=== PATIENT | female | born 1940 | race Hispanic/Latino ===

== ENCOUNTER 2021-03-11 15:00 | Emergency (ER) | payer MEDICARE ==
[2021-03-11] MEDS ORDERED: HYDROCODONE/ACETAMINOPHEN 5/325 MG TAB ONE (16:48)
== END 2021-03-11 19:21 | disposition home or self-care (01) ==
LOC: EDH 15:00
DX: S92.901A Unspecified fracture of right foot, initial encounter for closed fracture (principal); S90.01XA Contusion of right ankle, initial encounter; E11.9 Type 2 diabetes mellitus without complications; I10 Essential (primary) hypertension; E78.00 Pure hypercholesterolemia, unspecified; Z72.0 Tobacco use; Z86.73 Personal history of transient ischemic attack (TIA), and cerebral infarction without residual deficits; W18.39XA Other fall on same level, initial encounter; Y93.89 Activity, other specified; Y92.89 Other specified places as the place of occurrence of the external cause; Y99.8 Other external cause status
CPT/HCPCS: 73590; 73610; 73620; 93971

== ENCOUNTER 2021-07-09 21:49 | Emergency (ER) | payer MEDICARE ==
[~2021-07-09] VITALS: Ht 152.4 cm; Wt 61.2 kg
[2021-07-10 00:55] LABS: APPEARANCE,URINE Clear (CLEAR); BILIRUBIN,URINE Negative (NEGATIVE); COLOR,URINE Yellow (YELLOW); GLUCOSE, URINE (UA) Negative (NEGATIVE); KETONES,URINE Trace mg/dL (NEGATIVE); LEUKOCYTE ESTERASE ,URINE Negative (NEGATIVE); NITRATE,URINE Negative (NEGATIVE); OCCULT BLOOD,URINE Negative (NEGATIVE); PROTEIN,URINE POS 2+ mg/dL (NEGATIVE)
[2021-07-10 01:06] LABS: BASOPHILS % (AUTO) 0.4 % (0.0-5.0); EOSINOPHILS % (AUTO) 0.4 % (0.0-8.0); HEMATOCRIT 38.2 % (36-48); LYMPHOCYTES % (AUTO) 37.5 % (21.0-51.0); MEAN CORPUSCULAR HEMOGLOBIN 30.4 pg (27.0-33.0); MEAN CORPUSCULAR VOLUME 92.3 fL (79-99); MONOCYTES % (AUTO) 7.8 % (3.0-13.0); NEUTROPHILS % (AUTO) 53.8 % (40.0-77.0); PLATELET COUNT (AUTO) 303 K/uL (130-400); RED BLOOD CELL COUNT(AUTO) 4.14 MIL/uL (4.00-5.50); RED CELL DISTRIBUTION WIDTH 13.8 % (11.0-15.5); WHITE BLOOD COUNT (AUTO) 7.5 K/uL (4.8-10.8)
[2021-07-10 01:08] VITALS: BP 158/67
[2021-07-10 01:08] LABS: BACTERIA,URINE Rare /HPF (None Seen); MUCUS,URINE Few LPF (None Seen); RBC,URINE 0-1 /HPF (0-1); SQUAMOUS EPITHELIAL CELL,UR 0-2 /HPF (0-2); WBC,URINE 0-1 /HPF (0-1)
[2021-07-10 01:19] LABS: CREATININE 1.2 mg/dL (0.5-1.5)
[2021-07-10 01:24] LABS: ALBUMIN 4.1 g/dL (3.5-5.0); BILIRUBIN,TOTAL 0.7 mg/dL (0.2-1.0); TOTAL PROTEIN, SERUM 8.5 g/dL (6.0-8.3)
[2021-07-10 02:17] VITALS: BP 170/76
[2021-07-10] MEDS ORDERED: 0.9%NACL 1000ML 1,000 ML IV ONE (02:30)
[2021-07-10] MEDS ORDERED: FAMOTIDINE 20MG VIAL IV ONE ×2 (02:30→02:33)
[2021-07-10] MEDS ORDERED: PROCHLORPERAZINE 10MG/2ML INJ IV ONE (02:30)
[2021-07-10] MEDS ORDERED: ONDANSETRON 4MG INJ IVP ONE (02:30)
[2021-07-10] MEDS ORDERED: ONDANSETRON 4MG INJ ONE (02:33)
[2021-07-10] MEDS ORDERED: PROCHLORPERAZINE 10MG/2ML INJ ONE (02:33)
[2021-07-10] MEDS ORDERED: MORPHINE 2 MG SYG ONE (03:05)
[2021-07-10] MEDS ORDERED: MORPHINE 2 MG SYG IVP ONE (03:30)
[2021-07-10] MEDS ORDERED: FAMO-136 PO (04:16)
[2021-07-10] MEDS ORDERED: PROC5TAB54 PO (04:16)
[2021-07-10 04:18] VITALS: BP 158/68
== END 2021-07-10 04:43 | disposition home or self-care (01) ==
LOC: EDH 21:49
DX: K52.9 Noninfective gastroenteritis and colitis, unspecified (principal); E86.0 Dehydration; M19.90 Unspecified osteoarthritis, unspecified site; F32.9 Major depressive disorder, single episode, unspecified
CPT/HCPCS: 36415; 71045; 74176; 80053; 81001; 83605; 83690; 84484; 85025; 87040 ×2; 93005; 96374; 96375; 99285; J0780; J2405; J3490

== ENCOUNTER 2021-08-02 16:50 | Emergency (ER) | payer MEDICARE ==
[~2021-08-02] VITALS: Ht 152.4 cm; Wt 63.5 kg
[~2021-08-02 16:50] MED LIST: FAMO-136 PO; PROC5TAB54 PO
[2021-08-02 16:51] VITALS: BP 105/59
[2021-08-02 17:19] LABS: BASOPHILS % (AUTO) 0.8 % (0.0-5.0); EOSINOPHILS % (AUTO) 0.9 % (0.0-8.0); LYMPHOCYTES % (AUTO) 24.2 % (21.0-51.0); MEAN CORPUSCULAR HEMOGLOBIN 30.6 pg (27.0-33.0); MEAN CORPUSCULAR HGB CONC 32.4 g/dL (32.0-36.0); MEAN CORPUSCULAR VOLUME 94.7 fL (79-99); MONOCYTES % (AUTO) 5.7 % (3.0-13.0); PLATELET COUNT (AUTO) 362 K/uL (130-400); RED BLOOD CELL COUNT(AUTO) 3.59 MIL/uL (4.00-5.50); RED CELL DISTRIBUTION WIDTH 14.2 % (11.0-15.5); WHITE BLOOD COUNT (AUTO) 7.9 K/uL (4.8-10.8)
[2021-08-02 17:30] LABS: CARBON DIOXIDE 22 mmol/L (21-32); CHLORIDE 101 mmol/L (101-111); CREATININE 1.6 mg/dL (0.5-1.5); GLOMERULAR FILTR. RATE CALC 33 mL/min (>60); GLUCOSE,RANDOM 308 mg/dL (70-105); POTASSIUM 4.9 mmol/L (3.5-5.1); SODIUM SERUM 136 mmol/L (136-145); UREA NITROGEN, BLOOD 25 mg/dL (7-18)
[2021-08-02 17:35] LABS: ALANINE AMINOTRANSFERASE 19 U/L (12-78); ALBUMIN 3.5 g/dL (3.5-5.0); ASPARTATE AMINOTRANSFERASE 15 U/L (10-37); B-TYPE NATRIURETIC PEPTIDE 33 pg/mL (0-100); BILIRUBIN,TOTAL 0.5 mg/dL (0.2-1.0)
[2021-08-02 17:53] LABS: CRP QUANTITATIVE < 2.00 mg/L (0.00-9.0)
[2021-08-02 18:21] LABS: APPEARANCE,URINE Clear (CLEAR); BILIRUBIN,URINE Negative (NEGATIVE); COLOR,URINE Yellow (YELLOW); GLUCOSE, URINE (UA) Negative (NEGATIVE); KETONES,URINE Negative (NEGATIVE); LEUKOCYTE ESTERASE ,URINE Negative (NEGATIVE); NITRATE,URINE Negative (NEGATIVE); OCCULT BLOOD,URINE Negative (NEGATIVE); PH,URINE 5.5 (5.0-8.0); PROTEIN,URINE Trace mg/dL (NEGATIVE)
[2021-08-02] MEDS ORDERED: INSULIN HUMULIN R 100 UNIT/ML 3ML SQ ONE (18:30)
[2021-08-02] MEDS ORDERED: 0.9%NACL 1000ML 1,000 ML IV SCH (18:30)
[2021-08-02 18:32] LABS: BACTERIA,URINE Rare /HPF (None Seen); RBC,URINE 0-1 /HPF (0-1); SQUAMOUS EPITHELIAL CELL,UR Rare /HPF (0-2); WBC,URINE 0-1 /HPF (0-1)
[2021-08-02 18:33] LABS: MUCUS,URINE Rare LPF (None Seen)
[2021-08-02] MEDS ORDERED: DICY20TA2 PO (18:53)
[2021-08-02 19:39] VITALS: BP 129/63
== END 2021-08-02 19:44 | disposition home or self-care (01) ==
LOC: EDH 16:50
DX: R53.1 Weakness (principal); E11.65 Type 2 diabetes mellitus with hyperglycemia; R10.9 Unspecified abdominal pain; J45.909 Unspecified asthma, uncomplicated; I10 Essential (primary) hypertension; F32.9 Major depressive disorder, single episode, unspecified; Z98.890 Other specified postprocedural states
CPT/HCPCS: 36415; 71045; 74176; 80053; 81001; 83880; 84484; 85025; 86140; 93005; 96360; 99285; J1815; J7030

== ENCOUNTER 2022-01-31 11:39 | Emergency (ER) | payer OTHER, MEDICARE ==
[~2022-01-31 11:39] MED LIST changes: +DICY20TA2 PO
[2022-01-31 11:55] LABS: BASOPHILS % (AUTO) 0.4 % (0.0-5.0); EOSINOPHILS % (AUTO) 0.5 % (0.0-8.0); HEMATOCRIT 35.5 % (36-48); LYMPHOCYTES % (AUTO) 32.3 % (21.0-51.0); MEAN CORPUSCULAR HEMOGLOBIN 30.5 pg (27.0-33.0); MEAN CORPUSCULAR HGB CONC 34.1 g/dL (32.0-36.0); MEAN CORPUSCULAR VOLUME 89.4 fL (79-99); MONOCYTES % (AUTO) 6.4 % (3.0-13.0); NEUTROPHILS % (AUTO) 60.2 % (40.0-77.0); PLATELET COUNT (AUTO) 299 K/uL (130-400); RED BLOOD CELL COUNT(AUTO) 3.97 MIL/uL (4.00-5.50); WHITE BLOOD COUNT (AUTO) 8.4 K/uL (4.8-10.8)
[2022-01-31] MEDS ORDERED: ACETAMINOPHEN 500 MG TABLET PO SCH (12:00)
[2022-01-31 12:09] LABS: ALBUMIN 3.7 g/dL (3.5-5.0); BILIRUBIN,TOTAL 0.9 mg/dL (0.2-1.0); CREATININE 1.3 mg/dL (0.5-1.5); TOTAL PROTEIN, SERUM 7.6 g/dL (6.0-8.3)
[2022-01-31 13:39] VITALS: BP 168/76
[2022-01-31] MEDS ORDERED: LACTATED RINGERS 1000ML 1,000 ML IV ONE (13:43)
[2022-01-31] MEDS ORDERED: LACTATED RINGERS 1000ML IV SCH (14:00)
[2022-01-31 14:53] LABS: APPEARANCE,URINE Clear (CLEAR); BILIRUBIN,URINE Negative (NEGATIVE); COLOR,URINE Yellow (YELLOW); GLUCOSE, URINE (UA) >=1000 mg/dL (NEGATIVE); KETONES,URINE 15 mg/dL (NEGATIVE); LEUKOCYTE ESTERASE ,URINE Small (NEGATIVE); NITRATE,URINE Negative (NEGATIVE); OCCULT BLOOD,URINE Negative (NEGATIVE); PH,URINE 5.5 (5.0-8.0); PROTEIN,URINE POS 1+ mg/dL (NEGATIVE)
[2022-01-31 15:13] LABS: BACTERIA,URINE Rare /HPF (None Seen); RBC,URINE 0-1 /HPF (0-1)
[2022-01-31 15:14] LABS: SQUAMOUS EPITHELIAL CELL,UR Few /HPF (0-2)
[2022-01-31] MEDS ORDERED: CEPH500B PO (15:22)
== END 2022-01-31 15:38 | disposition home or self-care (01) ==
LOC: EDH 11:39
DX: N39.0 Urinary tract infection, site not specified (principal); E11.9 Type 2 diabetes mellitus without complications; E86.0 Dehydration; I10 Essential (primary) hypertension; J45.909 Unspecified asthma, uncomplicated; F32.A Depression, unspecified
CPT/HCPCS: 36415; 70450; 80053; 81001; 85025; 96360; 96361; 99284; J7120

== ENCOUNTER 2022-02-02 14:18 | Emergency (ER) | payer OTHER, MEDICARE ==
[~2022-02-02] VITALS: Ht 152.4 cm; Wt 69.9 kg
[~2022-02-02 14:18] MED LIST changes: +CEPH500B PO
[2022-02-02] MEDS ORDERED: ONDANSETRON 4MG INJ IVP ONE (14:30)
[2022-02-02] MEDS ORDERED: 0.9%NACL 1000ML 1,000 ML IV ONE (14:30)
[2022-02-02] MEDS ORDERED: PANTOPRAZOLE 40 MG/VIAL IVP ONE (14:30)
[2022-02-02 14:39] LABS: BASOPHILS % (AUTO) 0.4 % (0.0-5.0); EOSINOPHILS % (AUTO) 0.5 % (0.0-8.0); HEMATOCRIT 37.8 % (36-48); LYMPHOCYTES % (AUTO) 5.1 % (21.0-51.0); MEAN CORPUSCULAR HEMOGLOBIN 31.4 pg (27.0-33.0); MEAN CORPUSCULAR HGB CONC 34.1 g/dL (32.0-36.0); MONOCYTES % (AUTO) 3.6 % (3.0-13.0); NEUTROPHILS % (AUTO) 90.2 % (40.0-77.0); PLATELET COUNT (AUTO) 255 K/uL (130-400); RED BLOOD CELL COUNT(AUTO) 4.11 MIL/uL (4.00-5.50); WHITE BLOOD COUNT (AUTO) 8.5 K/uL (4.8-10.8)
[2022-02-02 14:55] LABS: ALBUMIN 3.6 g/dL (3.5-5.0); BILIRUBIN,TOTAL 1.1 mg/dL (0.2-1.0); CREATININE 1.2 mg/dL (0.5-1.5); POTASSIUM 3.8 mmol/L (3.5-5.1); TOTAL PROTEIN, SERUM 7.6 g/dL (6.0-8.3)
[2022-02-02] MEDS ORDERED: INSULIN HUMULIN R 100 UNIT/ML 3ML IV ONE ×2 (15:00→16:30)
[2022-02-02] MEDS ORDERED: DICYCLOMINE HCL 10 MG/5 ML ML PO ONE (15:30)
[2022-02-02] MEDS ORDERED: LIDOCAINE HCL 2% VISCOUS 15 ML UDCUP PO ONE (15:30)
[2022-02-02] MEDS ORDERED: MAG/ALUM/SIMETH 30 ML UDCUP PO ONE (15:30)
[2022-02-02] MEDS ORDERED: MORPHINE 2 MG SYG ONE (16:24)
[2022-02-02] MEDS ORDERED: INSULIN HUMULIN R 100 UNIT/ML 3ML ONE (16:24)
[2022-02-02] MEDS ORDERED: MORPHINE 2 MG SYG IVP ONE (16:30)
[2022-02-02 17:05] LABS: APPEARANCE,URINE Clear (CLEAR); BILIRUBIN,URINE Negative (NEGATIVE); COLOR,URINE Yellow (YELLOW); GLUCOSE, URINE (UA) >=1000 mg/dL (NEGATIVE); KETONES,URINE 15 mg/dL (NEGATIVE); LEUKOCYTE ESTERASE ,URINE Negative (NEGATIVE); NITRATE,URINE Negative (NEGATIVE); OCCULT BLOOD,URINE Negative (NEGATIVE); PROTEIN,URINE POS 1+ mg/dL (NEGATIVE); UROBILINOGEN,URINE 0.2 mg/dL (0.2-1.0)
[2022-02-02] MEDS ORDERED: IOHEXOL-350 50ML VIAL IV ONE (17:13)
[2022-02-02 17:18] LABS: RBC,URINE 0-1 /HPF (0-1); WBC,URINE 0-1 /HPF (0-1)
[2022-02-02 17:19] LABS: BACTERIA,URINE Few /HPF (None Seen); SQUAMOUS EPITHELIAL CELL,UR Few /HPF (0-2)
[2022-02-02] MEDS ORDERED: KETOROLAC 30MG VIAL (30MG/ML) IV ONE (18:00)
[2022-02-02] MEDS ORDERED: KETOROLAC 30MG VIAL (30MG/ML) ONE (18:02)
[2022-02-02] MEDS ORDERED: DICY10 PO (18:08)
[2022-02-02 18:48] VITALS: BP 149/75
== END 2022-02-02 18:51 | disposition home or self-care (01) ==
LOC: EDH 14:18
DX: K52.9 Noninfective gastroenteritis and colitis, unspecified (principal); E11.9 Type 2 diabetes mellitus without complications; I10 Essential (primary) hypertension
CPT/HCPCS: 36415; 74177; 80053; 81001; 82948 ×2; 83690; 84484; 85025; 93005; 96361; 96374; 96375; 96376; 99285; C9113; J1815 ×2; J1885; J2405; Q9967

== ENCOUNTER 2022-05-02 11:14 | Emergency (ER) | payer OTHER, MEDICARE ==
[~2022-05-02] VITALS: Ht 154.9 cm; Wt 68.0 kg
[~2022-05-02 11:14] MED LIST changes: +DICY10 PO
[2022-05-02 11:51] LABS: BASOPHILS % (AUTO) 0.6 % (0.0-5.0); HEMATOCRIT 33.2 % (36-48); LYMPHOCYTES % (AUTO) 29.2 % (21.0-51.0); MEAN CORPUSCULAR HEMOGLOBIN 30.6 pg (27.0-33.0); MEAN CORPUSCULAR HGB CONC 32.8 g/dL (32.0-36.0); MEAN CORPUSCULAR VOLUME 93.3 fL (79-99); NEUTROPHILS % (AUTO) 61.9 % (40.0-77.0); PLATELET COUNT (AUTO) 281 K/uL (130-400); RED BLOOD CELL COUNT(AUTO) 3.56 MIL/uL (4.00-5.50); RED CELL DISTRIBUTION WIDTH 13.9 % (11.0-15.5); WHITE BLOOD COUNT (AUTO) 6.4 K/uL (4.8-10.8)
[2022-05-02 12:01] LABS: CREATININE 1.3 mg/dL (0.5-1.5); POTASSIUM 4.2 mmol/L (3.5-5.1)
[2022-05-02 12:06] LABS: ALBUMIN 3.5 g/dL (3.5-5.0); BILIRUBIN,TOTAL 0.8 mg/dL (0.2-1.0); TOTAL PROTEIN, SERUM 7.2 g/dL (6.0-8.3)
[2022-05-02 12:36] LABS: APPEARANCE,URINE Clear (CLEAR); BILIRUBIN,URINE Negative (NEGATIVE); COLOR,URINE Yellow (YELLOW); GLUCOSE, URINE (UA) >=1000 mg/dL (NEGATIVE); KETONES,URINE Negative (NEGATIVE); LEUKOCYTE ESTERASE ,URINE Trace (NEGATIVE); NITRATE,URINE Negative (NEGATIVE); OCCULT BLOOD,URINE Negative (NEGATIVE); PH,URINE 5.5 (5.0-8.0); PROTEIN,URINE Trace mg/dL (NEGATIVE)
[2022-05-02 12:53] LABS: BACTERIA,URINE Rare /HPF (None Seen); RBC,URINE 0-1 /HPF (0-1); SQUAMOUS EPITHELIAL CELL,UR Rare /HPF (0-2)
[2022-05-02] MEDS ORDERED: ACETAMINOPHEN 325 MG TAB ONE (13:58)
[2022-05-02] MEDS ORDERED: ONDANSETRON 4MG INJ ONE (13:59)
[2022-05-02] MEDS ORDERED: CEFTRIAXONE 1G VIAL IVP ONE (15:00)
[2022-05-02] MEDS ORDERED: CLOT45CR23 VG (16:09)
[2022-05-02] MEDS ORDERED: SULF1TAB42 PO (16:09)
[2022-05-02] MEDS ORDERED: ONDA4TAB10 PO (16:09)
[2022-05-02 16:53] VITALS: BP 108/56
== END 2022-05-02 17:04 | disposition home or self-care (01) ==
LOC: EDH 11:14
DX: N39.0 Urinary tract infection, site not specified (principal); E11.9 Type 2 diabetes mellitus without complications; R10.84 Generalized abdominal pain; I10 Essential (primary) hypertension; Z90.89 Acquired absence of other organs; Z90.49 Acquired absence of other specified parts of digestive tract; Z79.899 Other long term (current) drug therapy; W01.0XXA Fall on same level from slipping, tripping and stumbling without subsequent striking against object, initial encounter; Y93.89 Activity, other specified; Y92.89 Other specified places as the place of occurrence of the external cause; Y99.8 Other external cause status
CPT/HCPCS: 36415; 70450; 72125; 74176; 80053; 81001; 85025; 87088; 96374; 96375; 99284; J0696; J2405

== ENCOUNTER 2022-08-14 13:02 | Emergency (ER) | payer OTHER, MEDICARE ==
[~2022-08-14] VITALS: Ht 152.4 cm; Wt 54.4 kg
[~2022-08-14 13:02] MED LIST changes: +CLOT45CR23 VG; +ONDA4TAB10 PO; +SULF1TAB42 PO
[2022-08-14 13:04] VITALS: BP 143/77
[2022-08-14 13:39] LABS: BASOPHILS % (AUTO) 0.5 % (0.0-5.0); EOSINOPHILS % (AUTO) 2.4 % (0.0-8.0); HEMATOCRIT 33.3 % (36-48); LYMPHOCYTES % (AUTO) 26.9 % (21.0-51.0); MEAN CORPUSCULAR HEMOGLOBIN 31.3 pg (27.0-33.0); MEAN CORPUSCULAR HGB CONC 33.9 g/dL (32.0-36.0); MEAN CORPUSCULAR VOLUME 92.2 fL (79-99); MONOCYTES % (AUTO) 5.3 % (3.0-13.0); NEUTROPHILS % (AUTO) 64.6 % (40.0-77.0); PLATELET COUNT (AUTO) 268 K/uL (130-400); RED BLOOD CELL COUNT(AUTO) 3.61 MIL/uL (4.00-5.50); RED CELL DISTRIBUTION WIDTH 13.2 % (11.0-15.5); WHITE BLOOD COUNT (AUTO) 8.7 K/uL (4.8-10.8)
[2022-08-14 14:23] LABS: CREATININE 1.1 mg/dL (0.5-1.5); POTASSIUM 4.7 mmol/L (3.5-5.1)
[2022-08-14 14:49] LABS: ALBUMIN 3.6 g/dL (3.5-5.0); TOTAL PROTEIN, SERUM 7.5 g/dL (6.0-8.3)
[2022-08-14] MEDS ORDERED: MOXIFLOXACIN HCL 0.5% 3ML DROPS OS SCH (15:30)
[2022-08-14] MEDS ORDERED: MORPHINE 4 MG SYG IVP ONE (16:00)
== END 2022-08-14 17:48 | disposition home or self-care (01) ==
LOC: EDH 13:02
DX: G43.B0 Ophthalmoplegic migraine, not intractable (principal); H10.89 Other conjunctivitis; F32.A Depression, unspecified; E11.9 Type 2 diabetes mellitus without complications; Z90.89 Acquired absence of other organs; Z98.890 Other specified postprocedural states; Z79.899 Other long term (current) drug therapy
CPT/HCPCS: 99284; 96374; 70450; 82550; 83874; 84484; 80053; 85025; 36415; J2270

== ENCOUNTER → 2022-09-01 | Outpatient (CLI) | payer OTHER, MEDICARE | END | disposition home or self-care (01) | LOC: RAH 07:37 | PROVIDERS: ATTEND Internal Medicine Gastroenterology | DX: R11.2 Nausea with vomiting, unspecified (principal) | CPT/HCPCS: 78264; A9541 ==

== ENCOUNTER 2023-02-06 22:26 | Emergency (ER) | payer OTHER, MEDICARE ==
[~2023-02-06] VITALS: Ht 160 cm; Wt 78.0 kg
[~2023-02-06 22:26] MED LIST changes: +ATOR20TA65 PO; -CEPH500B PO; -CLOT45CR23 VG; -DICY10 PO; -DICY20TA2 PO; +METF-446 PO; -ONDA4TAB10 PO; -PROC5TAB54 PO; -SULF1TAB42 PO
[2023-02-06] MEDS ORDERED: ACETAMINOPHEN WITH CODEINE 1 TAB TAB PO ONE (22:30)
[2023-02-06 22:36] VITALS: BP 124/91
[2023-02-06] MEDS ORDERED: ACETAMINOPHEN 500 MG TABLET PO ONE (23:00)
[2023-02-06] MEDS ORDERED: NAPR-1180 PO (23:54)
== END 2023-02-07 00:21 | disposition home or self-care (01) ==
LOC: EDH 22:26
DX: S29.012A Strain of muscle and tendon of back wall of thorax, initial encounter (principal); S43.401A Unspecified sprain of right shoulder joint, initial encounter; S16.1XXA Strain of muscle, fascia and tendon at neck level, initial encounter; S09.90XA Unspecified injury of head, initial encounter; M25.811 Other specified joint disorders, right shoulder; E11.9 Type 2 diabetes mellitus without complications; F20.9 Schizophrenia, unspecified; I10 Essential (primary) hypertension; Z79.84 Long term (current) use of oral hypoglycemic drugs; Z79.899 Other long term (current) drug therapy; W18.39XA Other fall on same level, initial encounter; Y93.89 Activity, other specified; Y92.89 Other specified places as the place of occurrence of the external cause; Y99.8 Other external cause status
CPT/HCPCS: 70450; 71045; 72125; 72128; 73030

== ENCOUNTER 2023-03-05 15:56 | Emergency (ER) | payer OTHER, MEDICARE ==
[~2023-03-05 15:56] MED LIST changes: +NAPR-1180 PO
[2023-03-05 16:56] LABS: BASOPHILS % (AUTO) 0.5 % (0.0-5.0); EOSINOPHILS % (AUTO) 1.7 % (0.0-8.0); HEMATOCRIT 31.2 % (36-48); LYMPHOCYTES % (AUTO) 30.4 % (21.0-51.0); MEAN CORPUSCULAR HEMOGLOBIN 31.9 pg (27.0-33.0); MEAN CORPUSCULAR HGB CONC 32.4 g/dL (32.0-36.0); MEAN CORPUSCULAR VOLUME 98.4 fL (79-99); MONOCYTES % (AUTO) 7.9 % (3.0-13.0); NEUTROPHILS % (AUTO) 59.2 % (40.0-77.0); PLATELET COUNT (AUTO) 216 K/uL (130-400); RED BLOOD CELL COUNT(AUTO) 3.17 MIL/uL (4.00-5.50); RED CELL DISTRIBUTION WIDTH 13.7 % (11.0-15.5); WHITE BLOOD COUNT (AUTO) 6.3 K/uL (4.8-10.8)
[2023-03-05 17:04] LABS: CARBON DIOXIDE 22 mmol/L (21-32); CHLORIDE 99 mmol/L (101-111); CREATININE 1.5 mg/dL (0.5-1.5); GLOMERULAR FILTR. RATE CALC 35 mL/min (>90); GLUCOSE,RANDOM 220 mg/dL (70-105); POTASSIUM 4.2 mmol/L (3.5-5.1); SODIUM SERUM 130 mmol/L (136-145); UREA NITROGEN, BLOOD 28 mg/dL (7-18)
[2023-03-05 17:08] LABS: ALANINE AMINOTRANSFERASE 23 U/L (12-78); ALBUMIN 3.5 g/dL (3.5-5.0); ASPARTATE AMINOTRANSFERASE 20 U/L (10-37); TOTAL PROTEIN, SERUM 6.6 g/dL (6.0-8.3)
[2023-03-05 17:09] LABS: LIPASE < 50 U/L (114-286)
[2023-03-05 17:26] LABS: APPEARANCE,URINE CLEAR (CLEAR); BILIRUBIN,URINE NEGATIVE (NEGATIVE); COLOR,URINE LIGHT-YELLOW (YELLOW); GLUCOSE, URINE (UA) NEGATIVE (NEGATIVE); KETONES,URINE NEGATIVE (NEGATIVE); LEUKOCYTE ESTERASE ,URINE NEGATIVE Leu/uL (NEGATIVE); NITRATE,URINE NEGATIVE (NEGATIVE); OCCULT BLOOD,URINE NEGATIVE (NEGATIVE); PH,URINE 5.5 (5.0-8.0); PROTEIN,URINE 10 mg/dL (NEGATIVE); UROBILINOGEN,URINE 0.2 mg/dL (0.2-1.0)
[2023-03-05 17:35] LABS: BACTERIA,URINE RARE /HPF (None Seen); MUCUS,URINE RARE LPF (None Seen); RBC,URINE 0-1 /HPF (0-1)
[2023-03-05] MEDS ORDERED: LACT10SO9 PO (21:35)
[2023-03-05 21:56] VITALS: BP 111/62
== END 2023-03-05 22:04 | disposition home or self-care (01) ==
LOC: EDH 15:56
DX: K59.00 Constipation, unspecified (principal); J45.909 Unspecified asthma, uncomplicated; E11.9 Type 2 diabetes mellitus without complications; Z79.1 Long term (current) use of non-steroidal anti-inflammatories (NSAID); Z79.84 Long term (current) use of oral hypoglycemic drugs; Z79.899 Other long term (current) drug therapy; Z90.49 Acquired absence of other specified parts of digestive tract; Z90.710 Acquired absence of both cervix and uterus
CPT/HCPCS: 36415; 74018; 80053; 81001; 83690; 85025

== ENCOUNTER 2023-09-17 18:46 | Emergency (ER) | payer OTHER, MEDICARE ==
[~2023-09-17] VITALS: Ht 152.4 cm; Wt 67.1 kg
[~2023-09-17 18:46] MED LIST changes: +LACT10SO9 PO
[2023-09-17] MEDS ORDERED: DEXAMETHASONE SOD PHOSPHATE 4 MG/ML 1ML VIAL IVP ONE (20:00)
[2023-09-17 20:33] LABS: BASOPHILS # (AUTO) 0.05 K/uL (0.00-0.20); BASOPHILS % (AUTO) 0.5 % (0.0-5.0); EOSINOPHILS # (AUTO) 0.14 K/uL (0.00-0.70); EOSINOPHILS % (AUTO) 1.5 % (0.0-8.0); HEMATOCRIT 31.7 % (36-48); IMMATURE GRANULOCYTE ABSOLUTE 0.03 K/uL (0-1); LYMPHOCYTES % (AUTO) 32.5 % (21.0-51.0); MEAN CORPUSCULAR HEMOGLOBIN 32.4 pg (27.0-33.0); MEAN CORPUSCULAR HGB CONC 33.4 g/dL (32.0-36.0); MEAN CORPUSCULAR VOLUME 96.9 fL (79-99); MONOCYTES # (AUTO) 0.5 K/uL (0.1-1.0); MONOCYTES % (AUTO) 5.6 % (3.0-13.0); NEUTROPHILS # (AUTO) 5.4 K/uL (1.8-7.7); NEUTROPHILS % (AUTO) 59.6 % (40.0-77.0); PLATELET COUNT (AUTO) 384 K/uL (130-400); RED BLOOD CELL COUNT(AUTO) 3.27 MIL/uL (4.00-5.50); RED CELL DISTRIBUTION WIDTH 13.9 % (11.0-15.5); WHITE BLOOD COUNT (AUTO) 9.1 K/uL (4.8-10.8)
[2023-09-17] MEDS ORDERED: ALPRAZOLAM 0.5 MG TABLET ONE (20:39)
[2023-09-17 20:41] LABS: CREATININE 1.8 mg/dL (0.5-1.5)
[2023-09-17 20:50] LABS: BILIRUBIN,TOTAL 0.5 mg/dL (0.2-1.0); TOTAL PROTEIN, SERUM 8.1 g/dL (6.0-8.3)
[2023-09-17 20:59] VITALS: BP 118/70; PULSE 76; RESP 16; O2SAT 97
[2023-09-17] MEDS ORDERED: ALPRAZOLAM 0.5 MG TABLET PO ONE (21:00)
[2023-09-17 21:19] LABS: B-TYPE NATRIURETIC PEPTIDE 83 pg/mL (0-100)
[2023-09-17 22:00] LABS: ERYTHROCYTE SEDIMENTATION RATE 39 MM/HR (0-30)
== END 2023-09-17 22:40 | disposition home or self-care (01) ==
LOC: EDH 18:46
DX: R51.9 Headache, unspecified (principal); F03.90 Unspecified dementia, unspecified severity, without behavioral disturbance, psychotic disturbance, mood disturbance, and anxiety; E11.9 Type 2 diabetes mellitus without complications; F32.A Depression, unspecified; Z79.84 Long term (current) use of oral hypoglycemic drugs; Z79.899 Other long term (current) drug therapy; Z90.49 Acquired absence of other specified parts of digestive tract
CPT/HCPCS: 99285; 96374; 70450; 71045; 84484; 80053; 83880; 85025; 85651; 36415; 93005; J1100

== ENCOUNTER 2025-02-12 06:43 | Day surgery (SDC) | payer OTHER, MEDICARE ==
[2025-02-12] VITALS (10 sets, daily range): BP systolic 112–159; BP diastolic 40–72; PULSE 60–72; RESP 14–16; TEMP 97.1–97.7
[~2025-02-12] VITALS: Ht 147.3 cm; Wt 61.7 kg
[2025-02-12] MEDS: 0.9%NACL 1000ML 1,000 ML IV ONE (08:12)
[2025-02-12] MEDS ORDERED: QUET400T13 PO (08:14)
[2025-02-12] MEDS ORDERED: DAPA10TA PO (08:19)
[2025-02-12] MEDS ORDERED: SERT-439 PO (08:19)
[2025-02-12] MEDS ORDERED: METO5TAB2 PO (08:19)
[2025-02-12] MEDS ORDERED: TRAZ150T79 PO (08:19)
[2025-02-12] MEDS ORDERED: DULO60CA64 PO (08:19)
[2025-02-12] MEDS ORDERED: linzess PO (08:19)
[2025-02-12] MEDS ORDERED: GLIP-300 PO (08:19)
[2025-02-12] MEDS ORDERED: LIDOCAINE PF 100MG/5ML (2%) SYRINGE 5ML ONE (08:35)
[2025-02-12] MEDS ORDERED: proPOFol 10 MG/ML 20ML VIAL IV ONE (08:35)
--- NOTE | 2025-02-12 09:55 | NUR ---
Full and complete discharge instructions given to Patient and Family both verbally and in writing. Explained GI procedure precautions and follow up. All questions answered. PIV removed with catheter tip intact. NurseChaim RN gave d/c instructions to Patient and Provider, Annalee including need to repeat Colonoscopy.
--- NOTE | 2025-02-12 10:08 | NUR ---
D/c'd to Provider to re register then POV to home.
== END 2025-02-12 10:09 | disposition home or self-care (01) ==
LOC: ENDO 06:43 → DAH 06:43 → ENDO 10:09
PROVIDERS: ATTEND Internal Medicine Gastroenterology
DX: R19.4 Change in bowel habit (principal); K29.50 Unspecified chronic gastritis without bleeding; K31.89 Other diseases of stomach and duodenum; K31.A15 Gastric intestinal metaplasia without dysplasia, involving multiple sites; K31.84 Gastroparesis; K44.9 Diaphragmatic hernia without obstruction or gangrene; K31.7 Polyp of stomach and duodenum; K31.A0 Gastric intestinal metaplasia, unspecified; K31.819 Angiodysplasia of stomach and duodenum without bleeding; R63.4 Abnormal weight loss; R10.13 Epigastric pain; R11.2 Nausea with vomiting, unspecified; K29.40 Chronic atrophic gastritis without bleeding; J45.909 Unspecified asthma, uncomplicated; K21.9 Gastro-esophageal reflux disease without esophagitis; F32.A Depression, unspecified; E11.9 Type 2 diabetes mellitus without complications; G47.00 Insomnia, unspecified; Z90.710 Acquired absence of both cervix and uterus; Z98.890 Other specified postprocedural states; Z79.84 Long term (current) use of oral hypoglycemic drugs; Z79.899 Other long term (current) drug therapy
CPT/HCPCS: 43251; 00813; 82948 ×2; 43239; 45378; J7030; J2003; J2704; A4620; A4215 ×2; A4223; A4222; A4221; A4663; A4606; J3490

== ENCOUNTER 2025-02-13 09:32 | Day surgery (SDC) | payer OTHER, MEDICARE ==
[~2025-02-13] VITALS: Ht 152.4 cm; Wt 59.0 kg
[2025-02-13] VITALS (10 sets, daily range): BP systolic 124–169; BP diastolic 54–91; PULSE 54–68; RESP 12–17; TEMP 97.1–97.9
[~2025-02-13 09:32] MED LIST changes: -ATOR20TA65 PO; +DAPA10TA PO; +DULO60CA64 PO; -FAMO-136 PO; +GLIP-300 PO; -LACT10SO9 PO; +METO5TAB2 PO; -NAPR-1180 PO; +QUET400T13 PO; +SERT-439 PO; +TRAZ150T79 PO; +linzess PO
[2025-02-13] MEDS: 0.9%NACL 1000ML 1,000 ML IV ONE (10:31)
[2025-02-13] MEDS ORDERED: proPOFol 10 MG/ML 20ML VIAL IV ONE (10:36)
== END 2025-02-13 12:50 | disposition home or self-care (01) ==
LOC: DAH 09:32 → ENDO 09:32
PROVIDERS: ATTEND Internal Medicine Gastroenterology
DX: R19.4 Change in bowel habit (principal); R63.4 Abnormal weight loss; D12.2 Benign neoplasm of ascending colon; K29.40 Chronic atrophic gastritis without bleeding; K31.A15 Gastric intestinal metaplasia without dysplasia, involving multiple sites; K31.84 Gastroparesis; D13.1 Benign neoplasm of stomach; J45.909 Unspecified asthma, uncomplicated; I10 Essential (primary) hypertension; E11.9 Type 2 diabetes mellitus without complications; F32.A Depression, unspecified; G47.00 Insomnia, unspecified; Z90.710 Acquired absence of both cervix and uterus; Z98.890 Other specified postprocedural states; Z79.899 Other long term (current) drug therapy
CPT/HCPCS: 45385; 82948 ×2; 00811; J7030; J2704; A4620; A4215 ×2; A4223; A4222; A4221; A4663; A4606; J3490

== ENCOUNTER 2025-03-26 00:24 | Emergency (ER) | payer OTHER, MEDICARE ==
[~2025-03-26] VITALS: Ht 149.9 cm; Wt 49.9 kg
--- NOTE | 2025-03-26 00:35 | ERN ---
General Chief Complaint: Back Pain-No Injury Stated Complaint: LOWER BACK PAIN Time Seen by MD: 00:32 Source: patient History of Present Illness Initial Comments 84-year-old female who has a history of back pain in her lower back and upper back. She has been referred to a pain clinic but was unable to go there because she [facility]. Her primary care physician has stopped giving her medications, deferring her to the pain clinic. She has been to other hospitals today for a shot in her back. And instead has only received pills. She is coming here because she needs a �shot in her back. 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 Reported Medications Duloxetine HCl (Duloxetine HCl) 60 Mg Capsule.dr, 60 MG PO BID, CAP 02/12/25 [leonid] No Conflict Check, 72 MCG PO DAILY 02/12/25 Dapagliflozin Propanediol (Farxiga) 10 Mg Tablet, 10 MG PO DAILY, TAB 02/12/25 Trazodone HCl (Trazodone HCl) 150 Mg Tablet, 150 MG PO HS, TAB 02/12/25 Glipizide (Glipizide ER) 5 Mg Tab.er.24, 5 MG PO BID 02/12/25 Metoclopramide HCl (Metoclopramide HCl) 5 Mg Tablet, 5 MG PO QID, TAB 02/12/25 Sertraline HCl (Sertraline HCl) 50 Mg Tablet, 50 MG PO HS, TAB 02/12/25 Quetiapine Fumarate (Quetiapine Fumarate) 400 Mg Tablet, 400 MG PO HS, TAB 02/12/25 Past Medical History Past Medical History: Depression, Diabetes-Type II Medical History Other: GLAUCOMA Past Surgical History: Appendectomy, Hysterectomy, Cholecystectomy Surgical History Other: LEFT ANKLE / LEFT EYE Family History Family History: HTN Social History Social History: Negative, Lives with family Constitutional: (-) chills, (-) diaphoresis, (-) fever, (-) malaise, (-) weakness, (-) other documentation EENTM: (-) eye pain, (-) blurred vision, (-) tearing, (-) double vision, (-) ear pain, (-) ear discharge, (-) nose pain, (-) nose congestion, (-) throat pain, (-) Throat swelling, (-) mouth pain, (-) tooth pain, (-) mouth swelling, (-) other documentation Respiratory: (-) cough, (-) orthopnea, (-) short of breath, (-) stridor, (-) wheezing, (-) other documentation Cardiovascular: (-) chest pain, (-) edema, (-) palpitations, (-) syncope, (-) dyspnea on exertion, (-) other documentation Gastrointestinal/Abdominal: (-) nausea, (-) vomiting, (-) diarrhea, (-) abdominal pain, (-) abdominal distention, (-) constipation, (-) rectal bleeding, (-) dark stool/melena, (-) other documentation Genitourinary: (-) vaginal discharge, (-) vaginal bleeding, (-) dysuria, (-) frequency, (-) hematuria, (-) pain, (-) other documentation Musculoskeletal: (-) Neck pain, (-) back pain, (-) Flank Pain, (-) joint pain, (-) joint swelling, (-) muscle pain, (-) muscle stiffness, (-) gout, (-) other documentation Skin: (-) laceration, (-) contusion, (-) abrasion, (-) abscess, (-) rash, (-) change in color, (-) change in hair, (-) change in nails, (-) diaphoresis, (-) dryness, (-) other documentation Neuro: (-) altered mental status, (-) headache, (-) syncope, (-) paralysis, (-) numbness, (-) seizure, (-) pre-existing deficit, (-) tremors, (-) weakness, (-) dizziness, (-) slurred speech, (-) vertigo, (-) other documentation Physical Exam General Appearance: (+) mild distress Orientation: (+) alert, (+) oriented x 3 Eye: bilateral eye normal inspection, bilateral eye PERRL, bilateral eye EOMI Ear, Nose, Throat: (+) hearing grossly normal, (+) normal ENT inspection, (+) moist mucous membraine Neck: (+) normal inspection, (+) supple Respiratory: (+) chest non-tender, (+) lungs clear, (+) well ventilated Heart: (+) regular Vascular: (+) no edema Gastrointestinal: (+) soft, (+) no organomegaly Back: (+) no CVA tenderness MDM The patient says that if we can get her pain under control tonight she will go to the pain clinic and get seen tomorrow morning. I will give her one dose of Toradol and one dose of Flexeril and discharge her from the ED. DX & DISP Disposition: Discharge Departure Impression: Primary Impression: Strain of thoracic spine Condition: Stable Referrals: SANFORD RUDD MD (PCP) DEENA PATEL MD March 26, 2025 00:35
[2025-03-26] MEDS: CYCLOBENZAPRINE HCL 10 MG TABLET PO ONE (00:50)
[2025-03-26] MEDS: ketOROlac 60 MG VIAL (30MG/ML) IM ONE (00:50)
--- NOTE | 2025-03-26 01:39 | NUR ---
[employer]orer [employer] made aware of patient needing ride home, patient in er lobby
[2025-03-26 01:40] VITALS: BP 142/72; PULSE 88; RESP 16; TEMP 98.1; O2SAT 97
== END 2025-03-26 01:47 | disposition home or self-care (01) ==
LOC: EDH 00:24
DX: S29.012A Strain of muscle and tendon of back wall of thorax, initial encounter (principal); E11.9 Type 2 diabetes mellitus without complications; F32.A Depression, unspecified; Z79.84 Long term (current) use of oral hypoglycemic drugs; Z90.49 Acquired absence of other specified parts of digestive tract; Z90.710 Acquired absence of both cervix and uterus; X58.XXXA Exposure to other specified factors, initial encounter; Y93.89 Activity, other specified; Y92.89 Other specified places as the place of occurrence of the external cause; Y99.8 Other external cause status
CPT/HCPCS: 99283; 96372; J1885